=== PATIENT | female | born 1970 | race Caucasian/White ===

== ENCOUNTER 2016-11-11 05:22 | Day surgery (SDC) | payer MEDICARE, MEDICAID ==
[~2016-11-11] VITALS: Ht 170.2 cm; Wt 90.5 kg
--- NOTE | 2016-11-21 07:11 | CO ---
ADMIT: 11/11/2016 RM/LOC: [facility] MR#: [id number] [address] RADHA MCCORMICK [address] [place] [id number] Consultation SEX: F AGE: 46 : 1970 DATE OF CONSULTATION: 11/08/2016 ATTENDING PHYSICIAN: Blanka Darnell CONSULTING PHYSICIAN: Suresh Padilla MD Pre MRI with sedation H and P on Radha Mccormick so that she can have an MRI of her brain and thoracic spine to assess for her multiple sclerosis. This is done at the request of Blanka Darnell APRN. INDICATION: Followup of multiple sclerosis. HISTORY OF PRESENT ILLNESS: Radha is a 46-year-old, , white female with longstanding history of multiple sclerosis. She was seen for preop H and P prior to obtaining an MRI of the brain and thoracic spine for followup of multiple sclerosis. She denies any other concerns. PAST MEDICAL HISTORY: Includes 2 thyroidectomies, carpal tunnel releases of left subclavian port placement twice along with prior hysterectomy and tubal ligation. Illnesses include multiple sclerosis, hypothyroidism status post thyroidectomy, nicotine dependency currently 1 pack per day. MEDICATIONS: On admission include: 1. Synthroid 200 mcg daily. 2. Omeprazole 20 mg daily. 3. A daily vitamin. 4. Tysabri per Neurology recommendations. 5. Vitamin D3. ALLERGIES: NONE KNOWN. SOCIAL HISTORY: Is that of a 46-year-old, , white female. She is a social drinker and smokes 1/4th pack of cigarettes daily. FAMILY HISTORY: Negative for anesthetic complications. REVIEW OF SYSTEMS: Remarkable for some fatigue and problems with weakness and occasional sensations due to her MS. Remainder of review of systems is negative. PHYSICAL EXAMINATION: VITAL SIGNS: Include blood pressure 120/80 with a pulse of 78, temp of 98.3, height is 67 inches, weight 199 pounds with a sat of 99%. GENERAL APPEARANCE: Is that of a 46-year-old female who is alert, oriented, in no acute distress. HEENT: Pupils are reactive. Extraocular muscles are intact. TMs normal. Throat unremarkable. NECK: Without nodes or masses. Prior thyroidectomy scar noted. HEART: Regular without murmur. LUNGS: Clear. ADMIT: 11/11/2016 RM/LOC: [facility] MR#: [id number] [address] RADHA MCCORMICK [address] [place] [address] Consultation SEX: F AGE: 46 : 1970 ABDOMEN: Soft, nontender, benign. BREASTS: Deferred. GENITOURINARY: Deferred. RECTAL: Deferred. EXTREMITIES: Reveal no clubbing, cyanosis, or edema. LABORATORY DATA: Labs include a UA which is entirely normal. BMP with sodium of 142, potassium 4.3, BUN of 12, creatinine 0.72 with a glucose of 101, TSH which is markedly low at 0.20 with a free T4 elevated at 1.57, hemoglobin is 13.8. ASSESSMENT: 1. Multiple sclerosis. 2. Hypothyroidism, status post excessive thyroid replacement. 3. Tobacco dependency, currently 1/4 pack per day. 4. Obesity. PLAN: Her labs were reviewed. She is okayed for sedation and anesthesia as indicated for MRI of the brain and thoracic spine. Routine preop instructions given. Follow up as needed or other problems. Suresh Padilla MD/ tameka JOB #: [id number] CC: Blanka Darnell, Attending Physician Suresh Padilla, Family Physician
== END 2016-11-11 09:50 | disposition home or self-care (01) ==
LOC: RAD.S 05:22 → SSS 07:45 → EDSTATUS 07:45 → RAD.S 09:50
DX: G35 Multiple sclerosis (principal); M51.27 Other intervertebral disc displacement, lumbosacral region; M99.81 Other biomechanical lesions of cervical region; M51.36 Other intervertebral disc degeneration, lumbar region; E03.9 Hypothyroidism, unspecified; F17.210 Nicotine dependence, cigarettes, uncomplicated; E66.9 Obesity, unspecified; Z98.890 Other specified postprocedural states; Z90.710 Acquired absence of both cervix and uterus; Z98.51 Tubal ligation status